=== PATIENT | male | born 1970 | race Caucasian/White ===

== ENCOUNTER → 2025-01-23 | Outpatient (CLI) | payer OTHER, SELFPAY ==
[2025-01-23 12:46] LABS: Pathology Sent to OSU SEE PATHOLOGY REPORT
== END | disposition home or self-care (01) ==
PROVIDERS: PCP Physician Assistant; Referring Provider Surgery; Visit Provider Surgery
DX: R59.0 Localized enlarged lymph nodes (principal)

== ENCOUNTER → 2025-03-01 | Outpatient (CLI) | payer OTHER, SELFPAY ==
--- NOTE | 2025-03-01 10:13 | ECHODONC_ITS ---
Reason For Study Reason For Study: Cardio Toxic Drug Therapy Procedure This was a 2D Doppler, Color Flow transthoracic echocardiogram. Myocardial strain analysis was performed in this exam to aid in the assessment of cardiac function. The patient is in sinus rhythm. Exam performed in department. Left Ventricle Normal-sized left ventricle. Normal left ventricular wall thickness. The global longitudinal strain = -19.0 % (normal). Left ventricular EF by 3D: 51%. Normal left ventricular diastolic function. No regional wall motion abnormalities noted. Right Ventricle Normal right ventricle. Normal systolic function. Unable to estimate RV systolic pressure due to insufficient tricuspid regurgitant envelope. Atria The left and right atria are normal. Estimated RA pressure: 3 mmHg. Normal atrial septum. Mitral Valve Normal mitral valve. Trace mitral regurgitation. No mitral stenosis. Tricuspid Valve Normal tricuspid valve. Trace tricuspid regurgitation. No tricuspid stenosis. Aortic Valve Trileaflet aortic valve. No hemodynamically significant aortic stenosis. No aortic regurgitation. Pulmonic Valve Normal pulmonic valve. No pulmonic stenosis. Trace pulmonic regurgitation. Great Vessels Normal aortic root. Normal ascending aorta. Pericardium/Pleural No pericardial effusion. MMode/2D Measurements & Calculations LVIDd: 4.0 cm IVSd: 1.2 cm Ao root diam: 3.3 cm LVIDs: 2.9 cm LVPWd: 1.3 cm RVDd: 4.0 cm FS: 27.4 % LAV(MOD-bp): 39.1 ml LVAd ap4: 29.4 cm2 LVAd ap2: 27.1 cm2 LAV(MOD-bp) Indexed: 21.3 ml/m2 LVLd ap4: 7.7 cm LVLd ap2: 7.7 cm LAV(MOD-sp2): 41.9 ml EDV(MOD-sp4): 90.3 ml EDV(MOD-sp2): 79.1 ml LAV(MOD-sp4): 28.6 ml EDV(sp4-el): 95.7 ml EDV(sp2-el): 81.2 ml LVAs ap4: 18.6 cm2 LVAs ap2: 16.6 cm2 LVLs ap4: 6.7 cm LVLs ap2: 6.3 cm ESV(MOD-sp4): 43.8 ml ESV(MOD-sp2): 36.2 ml ESV(sp4-el): 43.8 ml ESV(sp2-el): 37.1 ml EF(MOD-sp4): 51.6 % EF(MOD-sp2): 54.2 % EF(sp4-el): 54.2 % SV(MOD-sp4): 46.6 ml SV(MOD-sp2): 42.8 ml EDV(MOD-bp): 83.7 ml SI(MOD-sp4): 25.4 ml/m2 SI(MOD-sp2): 23.4 ml/m2 ESV(MOD-bp): 40.1 ml EF(MOD-bp): 52.1 % SV(sp4-el): 51.8 ml Ao sinus diam: 3.[address] Junction: 2.6 cm LA dimension(2D): 3.8 cm LA A4 area: 11.3 cm2 RA A4 area: 11.2 cm2 TAPSE: 1.6 cm Time Measurements MV dec time: 0.33 sec Doppler Measurements & Calculations MV E max jean: 43.7 cm/sec Lat Peak E' Jean: 9.3 cm/sec Med Peak E' Jean: 8.2 cm/sec MV A max jean: 59.7 cm/sec E/E' lat: 4.7 E/E' med: 5.3 MV E/A: 0.73 MV V2 max: 73.4 cm/sec MV P1/2t max jean: 50.1 cm/sec Ao V2 max: 133.0 cm/sec MV max P.2 mmHg MV P1/2t: 107.3 msec Ao max P.1 mmHg MV V2 mean: 36.2 cm/sec MV dec slope: 136.7 cm/sec2 Ao V2 mean: 92.6 cm/sec MV mean P.63 mmHg Ao mean P.9 mmHg MV V2 VTI: 18.2 cm MVA(P1/2t): 2.1 cm2 Ao V2 VTI: 23.0 cm AV (velocity ratio): 0.85 LV V1 max: 100.8 cm/sec PA V2 max: 106.2 cm/sec TR max jean: 218.8 cm/sec LV V1 max P.1 mmHg TR max P.2 mmHg LV V1 mean P.1 mmHg LV V1 mean: 69.0 cm/sec LV V1 VTI: 19.5 cm ECHO/ONC Echo Complete Interpretation Summary Left ventricular EF by 3D: 51% with normal strain analysis Normal left ventricular diastolic function Normal right ventricular systolic function No hemodynamically significant valvular disease Ordering Physician: Moses Lyn Referring Physician: Moses Lyn Performed By: Tyler Mcghee RCS
== END | disposition home or self-care (01) ==
LOC: CVS 10:12
PROVIDERS: PCP Physician Assistant; Referring Provider Internal Medicine Medical Oncology; Visit Provider Internal Medicine Medical Oncology
DX: C83.38 Diffuse large B-cell lymphoma, lymph nodes of multiple sites (principal)
CPT/HCPCS: 93306; 93356